=== PATIENT | male | born 1970 ===

== ENCOUNTER 2023-08-26 18:47 | Emergency (ER) | payer SELFPAY ==
[~2023-08-26] VITALS: Ht 182.9 cm; Wt 122.5 kg
[2023-08-26 18:50] VITALS: BP 147/92; PULSE 105; RESP 17; TEMP 97.8; O2SAT 99
[2023-08-26] MEDS ORDERED: NACL 0.9% 2,000 ML IV ONE (19:00)
[2023-08-26] MEDS ORDERED: THIAMINE 200 MG/2 ML VIAL IM ONE (19:00)
[2023-08-26 19:49] LABS: BASOPHILS % (AUTO) 0.3 % (0.0-2.0); EOSINOPHILS % (AUTO) 0.1 % (0.0-4.0); HEMATOCRIT 39.9 % (36-52); HEMOGLOBIN 13.8 g/dL (12.0-18.0); LYMPHOCYTES % (AUTO) 17.9 % (20.5-51.1); MEAN CORPUSCULAR HEMOGLOBIN 34 pg (27-31); MEAN CORPUSCULAR HGB CONC 35 g/dL (33-37); MEAN CORPUSCULAR VOLUME 97.5 fL (80-94); MONOCYTES # (AUTO) 0.3 K/uL (0.8-1.0); MONOCYTES % (AUTO) 4.6 % (1.7-9.3); NEUTROPHILS # (AUTO) 4.2 K/uL (1.8-7.7); NEUTROPHILS % (AUTO) 77.1 % (42.2-75.2); PLATELET COUNT (AUTO) 193 K/uL (140-450); RED BLOOD CELL COUNT(AUTO) 4.09 MIL/uL (4.20-6.10); RED CELL DISTRIBUTION WIDTH 13.1 % (11.6-13.7); WHITE BLOOD COUNT (AUTO) 5.5 K/uL (4.8-10.8)
[2023-08-26 20:05] LABS: ALBUMIN 3.7 g/dL (3.4-5.0); ANION GAP 21.9 (8-16); CALCIUM 8.1 mg/dL (8.5-10.1); CARBON DIOXIDE 22.2 mmol/L (21-32); CREATININE 0.9 mg/dL (0.6-1.3); POTASSIUM 3.1 mmol/L (3.5-5.1); TOTAL BILIRUBIN 1.7 mg/dL (0.0-1.0); TOTAL PROTEIN, SERUM 6.7 g/dL (6.4-8.2)
== END 2023-08-26 20:44 | disposition left against medical advice (07) ==
LOC: MED 18:47
DX: F10.129 Alcohol abuse with intoxication, unspecified (principal); E87.6 Hypokalemia; E86.0 Dehydration; Y90.8 Blood alcohol level of 240 mg/100 ml or more
CPT/HCPCS: 36415; 80053; 85025; 93005; 96360; 96372; 99284; G0482; J3411; J7030